=== PATIENT | male | born 1940 | race Caucasian/White ===

== ENCOUNTER 2018-03-07 09:32 | Emergency (ER) | payer MEDICARE ==
[~2018-03-07] VITALS: Ht 175.3 cm; Wt 79.0 kg
[2018-03-07] MEDS ORDERED: GLIP5TAB12 PO (12:35)
[2018-03-07] MEDS ORDERED: METF-816 PO (12:35)
[2018-03-07] MEDS ORDERED: LOSA50TA20 PO (12:48)
[2018-03-07] MEDS ORDERED: BACL-141 PO (12:48)
[2018-03-07] MEDS ORDERED: FENO145 PO (12:48)
[2018-03-07] MEDS ORDERED: ZOLP10TA6 PO (12:48)
[2018-03-07] MEDS ORDERED: FERR140T PO (12:48)
[2018-03-07] MEDS ORDERED: MONT10TA21 MT (12:48)
[2018-03-07] MEDS ORDERED: ATOR10TA69 PO (12:48)
[2018-03-07] MEDS ORDERED: LIDOCAINE HCL/EPINEPHRINE 1%-EPI 1:100,000 20 ML VIAL INFIL ONE (13:00)
[2018-03-07 14:51] VITALS: BP 162/91
== END 2018-03-07 14:53 | disposition home or self-care (01) ==
LOC: ER 10:02
DX: S81.811A Laceration without foreign body, right lower leg, initial encounter (principal); V48.4XXA Person boarding or alighting a car injured in noncollision transport accident, initial encounter; W26.8XXA Contact with other sharp object(s), not elsewhere classified, initial encounter; Y93.89 Activity, other specified; Y92.89 Other specified places as the place of occurrence of the external cause; R03.0 Elevated blood-pressure reading, without diagnosis of hypertension; Z88.5 Allergy status to narcotic agent; Z79.899 Other long term (current) drug therapy
CPT/HCPCS: 12002; 73590; 99284; J3490